=== PATIENT | male | born 1995 | race Caucasian/White ===

== ENCOUNTER 2019-02-11 16:59 | Emergency (ER) | payer SELFPAY ==
[~2019-02-11] VITALS: Ht 172.7 cm; Wt 70.3 kg
[2019-02-11 17:07] VITALS: BP 101/74
[2019-02-11] MEDS ORDERED: ACETAMINOPHEN/CODEINE#3 (300/30mg) TAB PO ONE (19:00)
[2019-02-11] MEDS ORDERED: BACLOFEN 10 MG TAB PO ONE (19:00)
== END 2019-02-11 19:29 | disposition home or self-care (01) ==
LOC: ER 17:04
DX: S40.012A Contusion of left shoulder, initial encounter (principal); M62.838 Other muscle spasm; W01.0XXA Fall on same level from slipping, tripping and stumbling without subsequent striking against object, initial encounter; Y93.89 Activity, other specified; Y99.8 Other external cause status; Y92.89 Other specified places as the place of occurrence of the external cause
CPT/HCPCS: 73030

== ENCOUNTER 2020-08-22 00:26 | Emergency (ER) | payer SELFPAY ==
[~2020-08-22] VITALS: Ht 162.6 cm; Wt 63.5 kg
[2020-08-22] MEDS ORDERED: IOHEXOL 300 MG/ML 100ML BOTTLE IJ ONE (04:07)
[2020-08-22] MEDS ORDERED: SODIUM CHLORIDE 0.9% 1,000 ML IV ONE (05:45)
[2020-08-22 05:50] LABS: Basophils # (auto) 0.1 10 ^3/uL (0-0.2); Basophils % (auto) 0.4 % (0.0-2.0); Eosinophils # (auto) 0 10 ^3/uL (0-0.8); Hematocrit 52.7 % (41.0-53.0); Hemoglobin 18.2 g/dL (13.5-17.5); Lymphocytes # (auto) 1.1 10 ^3/uL (0.4-5.4); Lymphocytes % (auto) 5.5 % (10.0-50.0); Mean Corpuscular Hemoglobin 34.6 pg (28.0-32.0); Mean Corpuscular Hgb Conc. 34.5 g/dL (32.0-36.0); Mean Corpuscular Volume 100.2 fL (80.0-100.0); Monocytes # (auto) 0.7 10 ^3/uL (0-1.3); Monocytes % (auto) 3.4 % (0.0-12.0); Neutrophils # (auto) 17.5 10 ^3/uL (1.6-8.6); Neutrophils % (auto) 90.7 % (37.0-80.0); Nucleated Red Blood Cells % 0.2 %; Platelet Count (auto) 382 10^3/uL (140-450); Red Blood Cells 5.25 10^6/uL (4.5-5.90); Red Cell Distribution Width 13.6 % (11.8-14.3); White Blood Cell 19.2 10^3/uL (4.4-10.8)
[2020-08-22 05:59] LABS: BUN/Creatinine Ratio 12.5; Calcium 9.3 mg/dL (8.5-10.1); Potassium 3.1 mmol/L (3.5-5.1)
[2020-08-22] MEDS ORDERED: LORazepam 2MG/ML-1ML VIAL IM ONE (06:00)
[2020-08-22 06:06] LABS: INR 0.98 (0.9-1.15); Partial Thromboplastin Time 25.5 sec (23.0-31.2)
[2020-08-22 11:10] VITALS: BP 103/59
== END 2020-08-22 11:43 | disposition short-term general hospital (02) ==
LOC: ER 00:26
DX: S22.42XA Multiple fractures of ribs, left side, initial encounter for closed fracture (principal); S22.030A Wedge compression fracture of third thoracic vertebra, initial encounter for closed fracture; S27.321A Contusion of lung, unilateral, initial encounter; V86.69XA Passenger of other special all-terrain or other off-road motor vehicle injured in nontraffic accident, initial encounter; Y93.89 Activity, other specified; Y92.89 Other specified places as the place of occurrence of the external cause; Y99.8 Other external cause status
CPT/HCPCS: 36415; 71045; 71260; 72125; 72170; 73030; 80048; 85025; 85610; 85730; 93005; 96360; 96372; 99285; J2060; J7030; Q9967